=== PATIENT | male | born 1975 | race Caucasian/White ===

== ENCOUNTER 2020-01-10 08:44 | Outpatient (REF) | payer OTHER, SELFPAY ==
--- NOTE | 2020-01-10 08:46 | CT_ITS ---
EXAMINATION: CT CHEST WITH CONTRAST CLINICAL INFORMATION: Chronic cough. COMPARISON: Chest 12/07/[address] chest 06/18/2016 TECHNIQUE: Multidetector volumetric CT imaging of the chest was obtained after the administration of 50 mL of Omnipaque 350 intravenous contrast without immediate adverse reactions. Axial MIP volume rendering provided. Sagittal and coronal reformatted images were obtained. This CT examination was performed using dose optimization techniques as appropriate, variously including the following: *Automated exposure control *Adjustment of mA and/or kV according to patient size (this includes techniques or standardized protocols for targeted exams where dose is matched to indication/reason for exam; i.e. extremities or head) *Use of iterative reconstruction technique DLP: 398 mGy-cm FINDINGS: PROJECT COORDINATOR: Unremarkable. LUNGS: The lungs are well expanded and clear of acute pneumonic process. Previously seen. Again visualized is a 3 mm nodule, appears smaller on axial image 68/8 in the anterobasal segment right lower lobe. It lies adjacent to the major fissure. No additional pulmonary nodules seen. There is 1 mm punctate calcification along the right major fissure, axial image 332/7. No additional nodules seen. MEDIASTINUM: The thyroid lobes are symmetrical and normal. The central trachea and the bronchi are widely patent. There are small shotty para-aortic and pretracheal lymph nodes. The pretracheal lymph node has central fat lucency and appears benign. Heart size and the great vessels are normal caliber. No pericardial effusion seen. PLEURA: There is no pleural effusion. No pleural mass or thickening. AXILLA: There are a few shotty bilateral axillary lymph nodes. The chest wall appears unremarkable. UPPER ABDOMEN: The liver is diffusely attenuated. No focal hepatic lesion or intrahepatic ductal dilatation seen. Visualized adrenal glands, spleen and pancreas are grossly unremarkable. OSSEOUS STRUCTURES: No lytic or sclerotic process seen. CT/CT chest w con IMPRESSION: Stable punctate nodule anterobasal segment right lower lobe. No new nodules or mass seen. Fatty infiltration of liver
[2020-01-10] MEDS: iohexoL 350 MG/ML 100 ML INFUS..BTL 65 ML IV (09:49)
== END 2020-01-10 08:45 | disposition home or self-care (01) ==
LOC: HO.CT 08:44
PROVIDERS: PCP Internal Medicine Medical Oncology; Visit Provider Internal Medicine Medical Oncology
DX: R05 Cough (principal)
CPT/HCPCS: 71260; Q9967

== ENCOUNTER → 2020-01-17 13:05 | Outpatient (BNVA) | payer OTHER, SELFPAY | PROVIDERS: PCP Internal Medicine Medical Oncology; Visit Provider Internal Medicine Pulmonary Disease | DX: Z76.89 Persons encountering health services in other specified circumstances (principal) ==

== ENCOUNTER 2020-01-17 13:44 | Outpatient (REF) | payer OTHER, SELFPAY ==
--- NOTE | 2020-01-17 17:24 | PFT_ITS ---
Forced vital capacity FEV1, [id number], and MVV are normal. Post bronchodilator therapy, there is no significant change. Total lung capacity and residual volume normal. Diffusion capacity normal. CONCLUSION: Normal pulmonary function test. MD CARLOS Parrish/CAREN / [id number]
== END 2020-01-17 13:45 | disposition home or self-care (01) ==
LOC: HO.RESP 13:44
PROVIDERS: PCP Internal Medicine Medical Oncology; Visit Provider Internal Medicine Pulmonary Disease
DX: J44.9 Chronic obstructive pulmonary disease, unspecified (principal)
CPT/HCPCS: 94060; 94727; 94729

== ENCOUNTER 2020-12-05 16:41 | Emergency (ER) | payer OTHER, SELFPAY ==
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
--- NOTE | ~2020-12-05 | XR_ITS ---
EXAMINATION: X-RAY LEFT ELBOW X-RAY LEFT FOREARM CLINICAL INFORMATION: Pain. COMPARISON: Radiograph of the left elbow dated from 05/25/2014. TECHNIQUE: 3 views of the left elbow and 2 views of the left forearm were obtained. FINDINGS: Left elbow: No evidence of acute fractures or malalignment. No joint effusion. No unexpected radiopaque foreign bodies. Left forearm: No acute fractures or malalignment. No joint effusion. No unexpected radiopaque foreign bodies. XR/XR forearm LT 2V IMPRESSION: No acute fractures or malalignment within the left elbow or left forearm.
--- NOTE | ~2020-12-05 | XR_ITS ---
EXAMINATION: X-RAY LEFT ELBOW X-RAY LEFT FOREARM CLINICAL INFORMATION: Pain. COMPARISON: Radiograph of the left elbow dated from 05/25/2014. TECHNIQUE: 3 views of the left elbow and 2 views of the left forearm were obtained. FINDINGS: Left elbow: No evidence of acute fractures or malalignment. No joint effusion. No unexpected radiopaque foreign bodies. Left forearm: No acute fractures or malalignment. No joint effusion. No unexpected radiopaque foreign bodies. XR/XR elbow LT 2V IMPRESSION: No acute fractures or malalignment within the left elbow or left forearm.
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
--- NOTE | ~2020-12-05 | XR_ITS ---
EXAMINATION: XR KNEE, RIGHT CLINICAL INFORMATION: Pain COMPARISON: None TECHNIQUE: AP, lateral, tunnel, and sunrise views of the right knee. FINDINGS: Soft tissues are swollen with subcutaneous edema. No fracture or malalignment. No joint effusion. Joint spaces are well-preserved. XR/XR knee RT 4V IMPRESSION: No acute osseous abnormalities.
[2020-12-05 17:02] VITALS: BP 164/95; PULSE 129; RESP 16; TEMP 36.1; O2SAT 97; BMI 48.4
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
[2020-12-05] MEDS: iohexoL 350 MG/ML 100 ML INFUS..BTL IV (17:52)
[2020-12-05 18:37] LABS: MANUAL DIFF FLAG NO
[2020-12-05 18:40] LABS: Basophils Absolute Auto 0.1 X10*3/uL (0.0-0.2); Basophils Percent Auto 0.4 % (0-2); Eosinophils Absolute Auto 0.1 X10*3/uL (0.0-0.4); Eosinophils Percent Auto 0.6 % (0-4); Hematocrit 37.3 % (42-52); Hemoglobin 12.5 g/dl (14.0-18.0); Imm Gran Abs Auto 0.13 X10*3/uL (0.00-0.03); Lymphocytes Absolute Auto 1.9 X10*3/uL (1.2-4.9); Mean Corpuscular HGB Conc 33.5 g/dl (31.0-36.0); Mean Corpuscular Hemoglobin 28.9 pg (27.0-33.0); Mean Corpuscular Volume 86.3 fL (80-98); Mean Platelet Volume 11.2 fL (9.4-12.4); Monocytes Absolute Auto 0.9 X10*3/uL (0.1-1.2); Monocytes Percent Auto 6.5 % (2-11); Neutrophils Absolute Auto 10.6 X10*3/uL (2.0-8.3); Neutrophils Percent Auto 77.5 % (45-73); Platelet Count 254 X10*3/uL (160-400); Red Blood Count 4.32 X10*6/uL (4.60-5.80); White Blood Count 13.7 X10*3/uL (4.8-10.8)
[2020-12-05 18:55] LABS: Anion Gap 13 (12-20); Blood Urea Nitrogen 16 mg/dL (9-16); Calcium 8.9 mg/dL (8.4-10.2); Carbon Dioxide 26 mmol/L (22-29); Chloride 101 mmol/L (96-108); Creatinine Clr Calc Pharmacy 106.7; Estimated Glomerular Filt Rate > 60; Glucose Random 310 mg/dL (60-115); Potassium 4.4 mmol/L (3.3-5.1); Sodium 136 mmol/L (135-145)
[2020-12-05 20:15] VITALS: BP 161/94; PULSE 117; RESP 20; TEMP 36.6; O2SAT 94
[2020-12-05] MEDS: 0.9 % Sodium Chloride 1,000 ML 999 ML IV (20:15)
== END 2020-12-05 20:52 | disposition short-term general hospital (02) ==
PROVIDERS: Emergency Provider Emergency Medicine Emergency Medical Services
DX: S30.1XXA Contusion of abdominal wall, initial encounter (principal); V47.5XXA Car driver injured in collision with fixed or stationary object in traffic accident, initial encounter; K66.1 Hemoperitoneum; W22.11XA Striking against or struck by driver side automobile airbag, initial encounter; Y93.9 Activity, unspecified; Y92.9 Unspecified place or not applicable; Y99.9 Unspecified external cause status
CPT/HCPCS: 36415; 70450; 71260; 72125; 73070; 73090; 73564; 74177; 80048; 85025; 93005; 96361; 96374; 99285; 99291; Q9967

== ENCOUNTER → 2021-01-12 14:30 | Outpatient (BNVA) | payer OTHER, SELFPAY | PROVIDERS: PCP Internal Medicine Medical Oncology; Visit Provider Internal Medicine Pulmonary Disease ==

== ENCOUNTER 2021-02-28 09:53 | Outpatient (REF) | payer OTHER, SELFPAY ==
[2021-02-28 10:21] LABS: MANUAL DIFF FLAG NO
[2021-02-28 11:04] LABS: Basophils Percent Auto 0.4 % (0-2); Eosinophils Absolute Auto 0.1 X10*3/uL (0.0-0.4); Eosinophils Percent Auto 1.5 % (0-4); Hematocrit 42.3 % (42.0-52.0); Hemoglobin 13.2 g/dl (14.0-18.0); Imm Gran Abs Auto 0.04 X10*3/uL (0.00-0.03); Imm Gran Pct Auto 0.5 % (0.0-0.4); Lymphocytes Absolute Auto 1.8 X10*3/uL (1.2-4.9); Lymphocytes Percent Auto 24.7 % (20-40); Mean Corpuscular HGB Conc 31.2 g/dl (31.0-36.0); Mean Corpuscular Hemoglobin 27.5 pg (27.0-33.0); Mean Corpuscular Volume 88.1 fL (80.0-98.0); Mean Platelet Volume 11.4 fL (9.4-12.4); Monocytes Absolute Auto 0.7 X10*3/uL (0.1-1.2); Monocytes Percent Auto 9.3 % (2-11); Neutrophils Absolute Auto 4.7 x10*3/uL (2.0-8.3); Neutrophils Percent Auto 63.6 % (45-73); Platelet Count 254 X10*3/uL (160-400); Red Cell Distribution Width 12.9 % (11.0-16.0); White Blood Count 7.3 X10*3/uL (4.8-10.8)
[2021-02-28 11:43] LABS: Alanine Aminotransferase 50 U/L (0-40); Albumin Level 4.1 g/dL (3.5-5.0); Alkaline Phosphatase 75 U/L (39-117); Anion Gap 15 (12-20); Aspartate Amino Transferase 29 U/L (5-37); Bilirubin Total 0.4 mg/dL (0.0-1.0); Blood Urea Nitrogen 14 mg/dL (9-16); Calcium 9.3 mg/dL (8.4-10.2); Carbon Dioxide 25 mmol/L (22-29); Chloride 102 mmol/L (96-108); Cholesterol 229 mg/dL; Estimated Glomerular Filt Rate > 60; Glucose Fasting 174 mg/dL (60-99); HDL Cholesterol 30 mg/dL; LDL Cholesterol Calculated 121 mg/dl; Potassium 4.4 mmol/L (3.3-5.1); Sodium 138 mmol/L (135-145); Triglycerides 394 mg/dL
[2021-02-28 11:47] LABS: Creatinine Urine 122.13 mg/dL
[2021-02-28 12:01] LABS: Estimated Average Glucose 197 mg/dL; Hemoglobin A1c % 8.5 %
== END 2021-02-28 09:54 | disposition home or self-care (01) ==
LOC: HO.LAB 09:53
PROVIDERS: PCP Internal Medicine Medical Oncology; Visit Provider Internal Medicine Medical Oncology
DX: E78.5 Hyperlipidemia, unspecified (principal); E66.01 Morbid (severe) obesity due to excess calories; E11.9 Type 2 diabetes mellitus without complications; Z12.5 Encounter for screening for malignant neoplasm of prostate
CPT/HCPCS: 36415; 80053; 80061; 82043; 83036; 84153; 85025

== ENCOUNTER 2021-06-08 21:06 | Emergency (ER) | payer OTHER, SELFPAY ==
--- NOTE | ~2021-06-08 | XR_ITS ---
EXAMINATION: XR CHEST CLINICAL INFORMATION: Shortness of breath COMPARISON: 12/07/2018 TECHNIQUE: 2 views of the chest were obtained. FINDINGS: No acute finding. No failure or infiltrate. There is no effusion. The cardiac silhouette is comparable to previous. The hilar structures do not appear pathologically enlarged. There is no effusion. XR/XR chest 2V IMPRESSION: No acute finding.
[2021-06-08 21:14] VITALS: BP 146/87; PULSE 107; RESP 20; TEMP 36.6; O2SAT 99; BMI 45.4
[2021-06-08 21:37] LABS: Glucose, Whole Blood 158 mg/dL (60-115)
[2021-06-08] MEDS: Albuterol Sulfate (0.083%) 2.5 MG/3 ML VIAL.NEB 10 MG INHALE ×2 (21:47→22:49)
--- NOTE | 2021-06-08 21:47 | ED.ASTHMA ---
HPI - Asthma General Chief Complaint: Asthma Stated Complaint: Asthma Time Seen by Provider: 06/08/21 21:18 Source: patient Mode of arrival: ambulatory History of Present Illness HPI Narrative: 45-year-old male with history of asthma, JOSEF, diabetes who presents with worsening shortness of breath over the past couple of days and stating that his inhaler has not been working . He otherwise denies fevers, chills, sore throat, nasal congestion but states that he has had a cough and has recently completed a 2 week course of azithromycin. Patient supper claims that he is not really good about taking his medication . Related Data Home Medications Medication Instructions Recorded Confirmed pantoprazole 40 mg tablet,delayed 40 mg PO DAILY 01/17/20 01/12/21 release Previous Rx's Medication Instructions Recorded fluticasone furoate 200 1 ea PO DAILY #60 ea 04/11/21 mcg-vilanterol 25 mcg/dose inhalation powder (Breo Ellipta) benzonatate 200 mg capsule 200 mg PO TID PRN #10 cap 06/08/21 prednisone 50 mg tablet 50 mg PO DAILY 4 Days #4 tab 06/08/21 Allergies Allergy/AdvReac Type Severity Reaction Status Date / Time No Known Allergies Allergy Verified 01/12/21 14:35 Review of Systems Review of Systems: Pertinent positives and negatives as stated in HPI 10 point review of systems is otherwise negative. PMFSH Past Medical History Source: nursing notes reviewed Social History Social History Alcohol intake: unknown Patient Tobacco Use Status: Never used Tobacco Years Smoked: 22 yrs Advance Directives: No Advance Directives Information Provided: No Physical Exam Vital Signs: Vital Signs: Last Vital Signs Temp 97.9 F 06/08/21 21:14 Pulse 96 06/08/21 23:48 Resp 20 06/08/21 23:48 BP 120/57 L 06/08/21 23:48 Pulse Ox 98 06/08/21 23:48 BMI result Body Mass Index 45.4 VITAL SIGNS: Reviewed. GENERAL: Well developed, well nourished, in no acute distress. HEAD: Normocephalic/atraumatic EYES: PERRLA, EOMI EARS: Ext canals without abnormality OROPHARYNX: no oral lesions noted, posterior pharynx clear LUNGS: Good inspiratory effort, but no wheeze/ rhonchi /rales. SpO2<99> CARDIOVASCULAR: Regular rate and rhythm without noted murmurs ABDOMEN: Soft, non-tender, non-distended with bowel sounds. SKIN: Inspection of the skin reveals no rashes NEUROLOGIC: Alert and oriented x 4. Strength and sensation to light touch were grossly intact x 4. Course Course Course Narrative: 45-year-old male with history and clinical presentation consistent with asthma bronchitis and likely exacerbated by seasonal allergies. Review of all investigations otherwise negative for acute findings and on re-evaluation patient states that he is feeling much improved and understands that he will be discharged with a prescription for cough medication, prednisone, and instructions to follow-up with his real estate management specialist on Friday. MDM - Asthma Lab Data Labs: Lab Results 06/08/21 06/08/21 Range/Units 21:30 21:50 POC Glucose 158 H (60-115) mg/dL Influenza Type A (GISELLA) Negative (Negative) Influenza Type B (GISELLA) Negative (Negative) Influenza A & B Note See Note Discharge Plan Discharge Clinical Impression: Asthma with acute exacerbation, JOSEF (obstructive sleep apnea), Environmental allergies, Seasonal allergies Patient Disposition: Home, Self-Care Instructions: Asthma (ED), Allergic Rhinitis (ED) Additional Instructions: 1. Resume all home medications as prescribed. This should include any [id number] allergy medications as this will provide additional symptom relief. 2. I recommend that you increase the frequency of your rescue inhaler for the next 24-48 hours as the course steroids takes affect. 3. The steroids will increase your sugar, increased acid production, and increase your blood pressure. Please monitor your sugar levels more closely and attempt to adjust your diet accordingly during this short period. 4. You have been placed on a short course of steroids As well as cough suppressant. 5. Follow-up with your real estate management specialist on Friday for re-evaluation and further outpatient management. Prescriptions: New prednisone 50 mg tablet 50 mg PO DAILY 4 Days Qty: 4 0RF benzonatate 200 mg capsule 200 mg PO TID PRN (Reason: cough) Qty: 10 0RF No Action Breo Ellipta 200-25 mcg/dose blister with device 1 ea PO DAILY Qty: 60 0RF pantoprazole 40 mg tablet,delayed release (DR/EC) 40 mg PO DAILY 0RF Referrals: Rodrick Gandhi MD [Primary Care Provider] -
[2021-06-08 21:57] VITALS: BP 130/61; PULSE 96; RESP 15; O2SAT 99
[2021-06-08] MEDS: Benzonatate 100 MG CAPSULE 200 MG PO (22:01)
[2021-06-08] MEDS: predniSONE 10 MG TABLET 50 MG PO (22:02)
[2021-06-08 22:32] VITALS: BP 132/63; PULSE 102; RESP 13; O2SAT 94
[2021-06-08 22:42] LABS: IDNOW Serial# 16C4AD1C; Influenza A Negative (Negative); Influenza B2 Negative (Negative)
[2021-06-08 23:37] VITALS: BP 116/49; PULSE 97; RESP 13; O2SAT 92
[2021-06-08] MEDS: Albuterol Sulfate 90 MCG 8 GM INHALER 4 PUFF INHALE (23:44)
[2021-06-08 23:48] VITALS: BP 120/57; PULSE 96; RESP 20; O2SAT 98
[2021-06-09 00:09] VITALS: BP 130/57; PULSE 92; RESP 16; TEMP 36.9; O2SAT 96
== END 2021-06-09 00:15 | disposition home or self-care (01) ==
PROVIDERS: Emergency Provider Student in an Organized Health Care Education/Training Program; PCP Internal Medicine Medical Oncology
DX: J45.901 Unspecified asthma with (acute) exacerbation (principal); G47.33 Obstructive sleep apnea (adult) (pediatric); J30.2 Other seasonal allergic rhinitis
CPT/HCPCS: 71046; 82947; 87502; 99284; 99285

== ENCOUNTER → 2021-06-19 13:47 | Outpatient (BNVA) | payer OTHER, SELFPAY | PROVIDERS: PCP Internal Medicine Medical Oncology; Visit Provider Internal Medicine Pulmonary Disease | DX: J45.909 Unspecified asthma, uncomplicated (principal); G47.33 Obstructive sleep apnea (adult) (pediatric); Z91.09 Other allergy status, other than to drugs and biological substances | CPT/HCPCS: 94640 ==

== ENCOUNTER 2021-08-04 10:12 | Outpatient (REF) | payer OTHER, SELFPAY ==
[2021-08-04 10:23] LABS: MANUAL DIFF FLAG NO
[2021-08-04 11:09] LABS: Basophils Absolute Auto 0.1 X10*3/uL (0.0-0.2); Basophils Percent Auto 0.6 % (0-2); Eosinophils Absolute Auto 0.2 X10*3/uL (0.0-0.4); Eosinophils Percent Auto 1.7 % (0-4); Hemoglobin 12.7 g/dl (14.0-18.0); Imm Gran Abs Auto 0.07 X10*3/uL (0.00-0.03); Imm Gran Pct Auto 0.6 % (0.0-0.4); Lymphocytes Absolute Auto 2.4 X10*3/uL (1.2-4.9); Lymphocytes Percent Auto 21.1 % (20-40); Mean Corpuscular HGB Conc 31.8 g/dl (31.0-36.0); Mean Corpuscular Hemoglobin 27.8 pg (27.0-33.0); Mean Corpuscular Volume 87.5 fL (80.0-98.0); Mean Platelet Volume 11.4 fL (9.4-12.4); Monocytes Absolute Auto 0.9 X10*3/uL (0.1-1.2); Monocytes Percent Auto 7.4 % (2-11); Neutrophils Absolute Auto 7.9 x10*3/uL (2.0-8.3); Neutrophils Percent Auto 68.6 % (45-73); Platelet Count 284 X10*3/uL (160-400); Red Blood Count 4.57 X10*6/uL (4.60-5.80); Red Cell Distribution Width 13.7 % (11.0-16.0); White Blood Count 11.6 X10*3/uL (4.8-10.8)
[2021-08-04 11:19] LABS: Estimated Average Glucose 189 mg/dL; Hemoglobin A1c % 8.2 %
[2021-08-04 11:37] LABS: Alanine Aminotransferase 47 U/L (0-40); Albumin Level 4.1 g/dL (3.5-5.0); Alkaline Phosphatase 79 U/L (39-117); Anion Gap 12 (12-20); Aspartate Amino Transferase 28 U/L (5-37); B Type Natriuretic Peptide 52 pg/mL (<100); Bilirubin Total 0.6 mg/dL (0.0-1.0); Blood Urea Nitrogen 16 mg/dL (9-16); Calcium 8.9 mg/dL (8.4-10.2); Carbon Dioxide 28 mmol/L (22-29); Chloride 104 mmol/L (96-108); Cholesterol 234 mg/dL; Estimated Glomerular Filt Rate > 60; Glucose Fasting 122 mg/dL (60-99); HDL Cholesterol 29 mg/dL; LDL Cholesterol Calculated 152 mg/dl; Potassium 4.4 mmol/L (3.3-5.1); Sodium 140 mmol/L (135-145); Total Protein 7.5 g/dL (6.5-8.0); Triglycerides 269 mg/dL
[2021-08-04 11:58] LABS: Ferritin 63 ng/mL (20-250); Prostate Specific Antigen 0.39 ng/mL (<0.05-4.0)
== END 2021-08-04 10:13 | disposition home or self-care (01) ==
LOC: HO.XRAY 10:12
PROVIDERS: PCP Internal Medicine Medical Oncology; Visit Provider Internal Medicine Medical Oncology
DX: D10.30 Benign neoplasm of unspecified part of mouth (principal); E78.5 Hyperlipidemia, unspecified; E11.9 Type 2 diabetes mellitus without complications; G47.33 Obstructive sleep apnea (adult) (pediatric); I50.9 Heart failure, unspecified; R07.9 Chest pain, unspecified; Z12.5 Encounter for screening for malignant neoplasm of prostate
CPT/HCPCS: 36415; 80053; 80061; 82728; 83036; 83880; 84153; 85025

== ENCOUNTER → 2021-08-08 14:04 | Outpatient (REF) | payer OTHER, SELFPAY ==
--- NOTE | 2021-08-08 14:07 | CA_ITS ---
Transthoracic Echocardiogram Patient (Last, First, Middle): Murray Damico, Gender: Male Date of : 1975 Age: 46 Procedure Date: 08/08/2021 Procedure Type: Transthoracic Echocardiogram Location: OP Height: 172.72 cm Weight: 131.54 kg BSA: 2.39 m2 Heart Rate: bpm BP: 124 / 80 mmHg Word Processor: Referring MD: Rodrick Gandhi MD Symptoms: I50.9 CHF Study Quality: Fair/Contrast used ECG Rhythm: Sinus Conclusions: - The left ventricular systolic function is normal. The visually estimated ejection fraction is between 65-70%. - No obvious valvular pathology seen on this study. Findings Procedure Information Contrast agent, definity, is being given per protocol without apparent complications. Left Ventricle Normal left ventricular cavity size. The left ventricular systolic function is normal. The visually estimated ejection fraction is between 65-70%. There is no evidence of regional wall motion abnormalities. Diastolic function is normal for age. Endocardial definition is suboptimal for wall thickness assessment; possible moderate septal hypertrophy. Right Ventricle Mildly increased right ventricular cavity size. There is normal right ventricular systolic function. Atria Both atria are normal in size. Aortic Valve There is a normal trileaflet aortic valve. There is no aortic valve stenosis. There is no aortic valve regurgitation. Mitral Valve The mitral valve appears normal. There is no mitral valve regurgitation. There is no mitral valve stenosis. Pulmonic Valve The pulmonic valve is likely normal. Tricuspid Valve There is trace tricuspid valve regurgitation. There is no evidence of pulmonary hypertension. Great Vessels The aortic annulus, sinuses of valsalva, and asc aorta are normal in size. Venous The inferior vena cava was not well visualized. The inferior vena cava is normal in size. Pericardium/Pleural There is no evidence of pericardial effusion. Prior Study Comparison No significant change compared to prior study dated: 11/30/2014. Recommendations, Care & Conclusions No obvious valvular pathology seen on this study. Measurements 2D Linear Measurements IVSd: 1.48 0.6-0.9/0.6-1.0 cm LVIDd: 5.00 3.9-5.3/4.2-5.9 cm LVIDd Index: 2.09 2.4-3.2/2.2-3.1 cm/m2 LVIDs: 2.94 2.0-3.6 cm LVPWd: 1.44 0.7-1.1 cm Ao Root: 3.60 2.1-3.5 cm LA Diam: 4.00 2.7-3.8/3.0-4.0 cm LAIDs Index: 1.67 1.5-2.3 cm/m2 LV Mass: 386.66 67-162/88-224 g LV Mass Index: 161.78 43-95/49-115 g/m2 LVOT Diam: 2.30 3.0+(-)1.3 cm 2D Systolic Function EF 4C: 71.60 >55% EF 2C: 54.40 >55% EF BiP: 64.70 >55% Mitral Valve MV Pk E: 1.13 MV PK A: 0.90 MV Decel Time: 223.00 E/A: 1.30 E'Lateral: 14.60 E'Medial: 7.83 E/E' Med: 14.40 E/E' Lat: 7.70 PHT: 65.00 MVA PHT: 3.38 Decel Wheeler: 5.06 Aortic Valve AoV Pk Flaco: 1.79 AoV Mn Flaco: 1.26 AoV VTI: 0.31 AoV Pk Grad: 13.00 Aov Mn Grad: 7.00 YUNIOR Cont.VTI: 3.31 LVOT LVOT Pk Flaco: 1.44 LVOT Mn Flaco: 0.98 LVOT VTI: 0.25 LVOT Pk Grad: 8.00 LVOT Mn Grad: 5.00 LVOT Diam: 2.30 LVOT Area: 4.15 Diastolic Function MV Pk E: 1.13 MV Pk A: 0.90 E/A: 1.30 E'Medial: 7.83 E/E' Med: 14.40 E' Laterial: 14.60 E/E' Lat: 7.70 Right Ventricle TAPSE (mm): 30.00 TVS' Flaco: 12.00 Tricuspid Valve TR Pk Flaco: 1.96 TR Pk Grad: 15.00 RA Press: 3.00 RVSP: 18.00 Great Vessels Aorta Ao Root-2D: 3.60 2.0-3.7 cm Pulmonary Valve PV Pk Flaco: 1.26 Peak PV Grad: 6.00 Updated in Other Vendor System with Status of Final Javier Singleton MD electronically signed on 08/09/2021 12:30:36 PM with status of Final
== END ==
LOC: HO.CARD 14:04
PROVIDERS: PCP Internal Medicine Medical Oncology; Visit Provider Internal Medicine Medical Oncology
DX: I50.9 Heart failure, unspecified (principal)
CPT/HCPCS: 93306; Q9957

== ENCOUNTER 2021-12-11 09:01 | Outpatient (REF) | payer OTHER, SELFPAY ==
--- NOTE | ~2021-12-11 | US_ITS ---
EXAMINATION: US VENOUS ULTRASOUND WITH DOPPLER LOWER EXTREMITY, RIGHT CLINICAL INFORMATION: Right leg swelling. COMPARISON: None TECHNIQUE: Ultrasound of the deep veins is performed from the hip to the calf with compression sonography and color and pulse Doppler assessment. Spectral analysis with color-flow imaging is performed. FINDINGS: There is normal venous compression and respiratory variation and augmented flow. The visualized common femoral vein, superficial femoral vein, profunda femoral vein, popliteal vein, and the trifurcation region shows no evidence of deep venous thrombosis. No right popliteal cyst. Mild subcutaneous edema in the right calf. Enlarged reniform inguinal lymph nodes are seen bilaterally measuring up to 3.3 cm in long axis on the right and 4.1 cm on the left US/US venous duplex LE RT IMPRESSION: 1. No evidence for deep venous thrombosis in the visualized veins of the right lower extremity. 2. Mild subcutaneous edema in the right calf. 3. Enlarged inguinal lymph nodes bilaterally nonspecific. The overall appearance is benign suggesting these are reactive. Correlate with patient history and physical exam.
== END 2021-12-11 09:02 | disposition home or self-care (01) ==
LOC: HO.US 09:01
PROVIDERS: PCP Internal Medicine Medical Oncology; Visit Provider Internal Medicine Medical Oncology
DX: I82.401 Acute embolism and thrombosis of unspecified deep veins of right lower extremity (principal)
CPT/HCPCS: 93971

== ENCOUNTER 2022-09-02 08:51 | Outpatient (REF) | payer OTHER, SELFPAY | END 2022-09-02 08:52 | disposition home or self-care (01) | LOC: HO.HOSX 08:51 | PROVIDERS: Visit Provider Orthopaedic Surgery | DX: Z13.89 Encounter for screening for other disorder (principal) ==

== ENCOUNTER 2022-12-28 08:14 | Outpatient (REF) | payer OTHER, SELFPAY ==
[2022-12-28 08:26] LABS: MANUAL DIFF FLAG NO
[2022-12-28 09:06] LABS: Basophils Absolute Auto 0.1 X10*3/uL (0.0-0.2); Basophils Percent Auto 0.6 % (0-2); Eosinophils Absolute Auto 0.2 X10*3/uL (0.0-0.4); Eosinophils Percent Auto 1.7 % (0-4); Imm Gran Abs Auto 0.06 X10*3/uL (0.00-0.03); Imm Gran Pct Auto 0.6 % (0.0-0.4); Lymphocytes Absolute Auto 2.6 X10*3/uL (1.2-4.9); Lymphocytes Percent Auto 27.5 % (20-40); Mean Corpuscular HGB Conc 31.6 g/dl (31.0-36.0); Mean Corpuscular Volume 85.6 fL (80.0-98.0); Mean Platelet Volume 11.4 fL (9.4-12.4); Monocytes Absolute Auto 0.8 X10*3/uL (0.1-1.2); Monocytes Percent Auto 8.6 % (2-11); Neutrophils Absolute Auto 5.6 x10*3/uL (2.0-8.3); Platelet Count 259 X10*3/uL (160-400); Red Blood Count 4.44 X10*6/uL (4.60-5.80); Red Cell Distribution Width 13.5 % (11.0-16.0); White Blood Count 9.3 X10*3/uL (4.8-10.8)
[2022-12-28 09:20] LABS: Estimated Average Glucose 240 mg/dL
[2022-12-28 09:41] LABS: Alanine Aminotransferase 43 U/L (0-40); Albumin Level 3.9 g/dL (3.5-5.0); Alkaline Phosphatase 70 U/L (39-117); Anion Gap 12 (12-20); Aspartate Amino Transferase 35 U/L (5-37); Bilirubin Total 0.4 mg/dL (0.0-1.0); Blood Urea Nitrogen 13 mg/dL (9-16); Calcium 8.9 mg/dL (8.4-10.2); Carbon Dioxide 29 mmol/L (22-29); Chloride 101 mmol/L (96-108); Cholesterol 209 mg/dL (<200); Estimated Glomerular Filt Rate > 60; Glucose Fasting 160 mg/dL (60-99); HDL Cholesterol 27 mg/dL (>40); LDL Cholesterol Calculated 122 mg/dL (<100); Sodium 138 mmol/L (135-145); Total Protein 8.1 g/dL (6.5-8.0); Triglycerides 301 mg/dL (<150)
== END 2022-12-28 08:15 | disposition home or self-care (01) ==
LOC: HO.LAB 08:14
PROVIDERS: PCP Internal Medicine Medical Oncology; Visit Provider Internal Medicine Medical Oncology
DX: E78.5 Hyperlipidemia, unspecified (principal); E66.01 Morbid (severe) obesity due to excess calories; E11.9 Type 2 diabetes mellitus without complications
CPT/HCPCS: 36415; 80053; 80061; 83036; 85025

== ENCOUNTER 2023-09-13 08:03 | Outpatient (REF) | payer OTHER, SELFPAY ==
[2023-09-13 08:56] LABS: MANUAL DIFF FLAG NO
[2023-09-13 09:07] LABS: Basophils Percent Auto 0.5 % (0-2); Eosinophils Absolute Auto 0.1 X10*3/uL (0.0-0.4); Eosinophils Percent Auto 1.7 % (0-4); Hematocrit 39.2 % (42.0-52.0); Hemoglobin 12.7 g/dl (14.0-18.0); Imm Gran Abs Auto 0.04 X10*3/uL (0.00-0.03); Imm Gran Pct Auto 0.5 % (0.0-0.4); Lymphocytes Absolute Auto 2.1 X10*3/uL (1.2-4.9); Lymphocytes Percent Auto 27.5 % (20-40); Mean Corpuscular HGB Conc 32.4 g/dl (31.0-36.0); Mean Corpuscular Hemoglobin 27.9 pg (27.0-33.0); Mean Corpuscular Volume 86.2 fL (80.0-98.0); Mean Platelet Volume 10.5 fL (9.4-12.4); Monocytes Absolute Auto 0.8 X10*3/uL (0.1-1.2); Monocytes Percent Auto 10.8 % (2-11); Neutrophils Absolute Auto 4.6 x10*3/uL (2.0-8.3); Platelet Count 243 X10*3/uL (160-400); Red Blood Count 4.55 X10*6/uL (4.60-5.80); White Blood Count 7.8 X10*3/uL (4.8-10.8)
[2023-09-13 09:15] LABS: Estimated Average Glucose 189 mg/dL; Hemoglobin A1c % 8.2 % (<6.0)
[2023-09-13 10:06] LABS: Alanine Aminotransferase 39 U/L (0-40); Albumin Level 4.1 g/dL (3.5-5.0); Alkaline Phosphatase 66 U/L (39-117); Anion Gap 14 (12-20); Aspartate Amino Transferase 23 U/L (5-37); Bilirubin Total 0.5 mg/dL (0.0-1.0); Blood Urea Nitrogen 10 mg/dL (9-16); Calcium 9.2 mg/dL (8.4-10.2); Carbon Dioxide 28 mmol/L (22-29); Chloride 103 mmol/L (96-108); Cholesterol 197 mg/dL (<200); Estimated Glomerular Filt Rate > 60; Glucose Fasting 161 mg/dL (60-99); HDL Cholesterol 31 mg/dL (>40); LDL Cholesterol Calculated 129 mg/dL (<100); Potassium 4.5 mmol/L (3.3-5.1); Sodium 140 mmol/L (135-145); Total Protein 8.2 g/dL (6.5-8.0); Triglycerides 185 mg/dL (<150)
== END 2023-09-13 08:04 | disposition home or self-care (01) ==
LOC: HO.LAB 08:03
PROVIDERS: PCP Internal Medicine Medical Oncology; Visit Provider Internal Medicine Medical Oncology
DX: E78.5 Hyperlipidemia, unspecified (principal); E11.9 Type 2 diabetes mellitus without complications; E66.01 Morbid (severe) obesity due to excess calories
CPT/HCPCS: 36415; 80053; 80061; 83036; 85025

== ENCOUNTER 2024-06-23 13:16 | Outpatient (REF) | payer OTHER, SELFPAY ==
[2024-06-23 13:27] LABS: Appearance Urine Clear; Color Urine Yellow; Glucose Urine UA >=1000 mg/dL (Negative); Leukocyte Esterase Urine Negative (Negative); Nitrite Urine Negative (Negative); PH 5.5 (5.0-9.0); Specific Gravity - Urine >= 1.030 (1.005-1.025); UMIC TRIGGER UA YES; Urine Blood Negative (Negative); Urine Ketones Trace mg/dL (Negative); Urine Protein 100 (2+) mg/dL (Neg-Trace)
[2024-06-23 13:29] LABS: Bacteria Urine None Seen (None Seen); Hyaline Casts Urine 0-2 /LPF (0-2); RBC Urine 0-2 /HPF (0-2); Squamous Epithelial Cell Urine 0-2 /HPF (0-2); WBC Urine 0-5 /HPF (0-5)
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
--- OUTSIDE RECORDS SUMMARY | 2024-06-23 13:29 | XMS_ITS | Patient Health Record ---
Author Organization Reymundo Gandhi III, MD Address [address] [place] [address] Care Team Providers Care Php Developer Name Role Phone Reymundo Gandhi Primary Care Provider [phone] Allergies Allergen (clinical drug ingredient) Drug/Non Drug Allergy documented on EMR Reaction Allergy Type Onset Date Status No Known Drug Allergy Unknown Drug Allergy Active Results Component Value Reference Range Notes RBS/Hemocue glucose Reviewed date:06/23/2024 08:56:59 AM Interpretation: [...] 0.2 - 1.3 BLD Negative Negative - Complete Blood Count Auto Di ff Reviewed date:09/14/2023 05:53:39 AM Interpretation: Performing Lab:[facility], [address] [place] [id number] Notes/Report: White Blood Count 7.8 4.8-10.8 X10*3/uL Red Blood Count 4.55 4.60-5.80 X10*6/uL Hemoglobin 12.7 14.0-18.0 g/dl Hematocrit 39.2 42.0-52.0 % Mean Corpuscular Volume 86.2 80.0-98.0 fL Mean Corpuscular Hemoglobin 27.9 27.0-33.0 pg Mean Corpuscular HGB Conc 32.4 31.0-36.0 g/dl Red Cell Distribution Width 13.0 11.0-16.0 % Platelet Count 243 160-400 X10*3/uL Mean Platelet Volume 10.5 9.4-12.4 fL Neutrophils Percent Auto 59.0 45-73 % Imm Gran Pct Auto 0.5 0.0-0.4 % Lymphocytes Percent Auto 27.5 20-40 % Monocytes Percent Auto 10.8 2-11 % Eosinophils Percent Auto 1.7 0-4 % Basophils Percent Auto 0.5 0-2 % NRBC Pct Auto 0.0 0.0-0.2 /100WBC Neutrophils Absolute Auto 4.6 2.0-8.3 x10*3/u L Imm Gran Abs Auto 0.04 0.00-0.03 X10*3/uL Lymphocytes Absolute Auto 2.1 1.2-4.9 X10*3/u L Monocytes Absolute Auto 0.8 0.1-1.2 X10*3/uL Eosinophils Absolute Auto 0.1 0.0-0.4 X10*3/u L Basophils Absolute Auto 0.0 0.0-0.2 X10*3/uL NRBC Abs Auto 0.000 0.0-0.012 X10*3/uL Comprehensive [place]. Panel Fa st Reviewed date:09/14/2023 05:53:39 AM Interpretation: Performing Lab:[facility], [address] [place] [address], [place] [address] Notes/Report: Sodium 140 135-145 mmol/L Potassium 4.5 3.3-5.1 mmol/L Chloride 103 96-108 mmol/L Carbon Dioxide 28 22-29 mmol/L Anion Gap 14 12-20 Blood Urea Nitrogen 10 9-16 mg/dL Creatinine 0.82 0.5-1.4 mg/dL Estimated Glomerular Filt Rate > 60 NOTE: For -Malagasy individuals, multiply the result by 1.210. Chronic Kidney Disease: Estimated GFR < 60 mL/min/1.73m2 Severe Kidney Disease: Estimated GFR < 15 mL/min/1.73m2 Glucose Fasting 161 60-99 mg/dL A fasting glucose of 126 mg/dl or greater on more than one occasion is considered diagnostic of diabetes. Calcium 9.2 8.4-10.2 mg/dL Bilirubin Total 0.5 0.0-1.0 mg/dL Aspartate Amino Transferase 23 5-37 U/L Alanine Aminotransferase 39 0-40 U/L Total Protein 8.2 6.5-8.0 g/dL Albumin Level 4.1 3.5-5.0 g/dL Alkaline Phosphatase 66 39-117 U/L Lipid Panel Reviewed date:09/14/2023 05:53:39 AM Interpretation: Performing Lab:[address] [id number] Notes/Report: Triglycerides 185 <150 mg/dL Desirable Triglyceride: less than 150 mg/dL Borderline High Triglyceride 150-199 mg/dL High Triglyceride: 200-499 mg/dL Very High Triglyceride: greater than or equal to 5OO mg/dL Cholesterol 197 <200 mg/dL Desirable Cholesterol: less than 200 mg/dL Borderline High Cholesterol: 200-239 mg/dL High Cholesterol: greater than 239 mg/dL LDL Cholesterol Calculated 129 <100 mg/dL Desirable LDL: less than 100 mg/dL Near Optimal/Above Optimal LDL: 110-129 mg/dL Borderline High LDL: 130-159 mg/dL High LDL: 160-189 mg/dL Very High LDL: greater than or equal to 190 mg/dL HDL Cholesterol 31 >40 mg/dL Desirable HDL: greater than 40 mg/dL Note: This HDL assay may give artificially low results in patients with liver disease. Hemoglobin A1c Reviewed date:09/14/2023 05:53:39 AM Interpretation: Performing Lab:[address] [id number] Notes/Report: Hemoglobin A1c % 8.2 <6.0 % Hemoglobin A1C Reference Range Adults: 4.8 - 6.0 % Non diabetic: < 6.0 % Goal: < 7.0 % Additional Action Suggested: > 8.0 % Note: Hemoglobin A1c results are invalid for patients with abnormal amounts of HbF. Blood transfusions may impact the HbA1c concentration in the patient sample. Estimated Average Glucose 189 eAG = Estimated average glucose which is %A1C expressed as average glucose, using the formula of the [id number] Average Glucose study (ADAG), Diabetes Care, Vol.31,#8, Sep. 2007 Reason For Referral Reason Consult and Treat Screening for Colon Cancer Diagnosis 1 Screen for colon can cer (Z12.11) Referral Organization Reymundo Gandhi III, MD Referring Provider First Name Reymundo Referring Provider Last Name Oksana Referring Provider Speciality Internal M edicine Referred Organization [facility] Address [address] [place] [id number], Referred Provider Specialty Gastroentero logy General Notes Franchesca Brown 03/08/2024 11:41:35 AM > Referral faxed with progress note, patient demos and cover sheet to [facility] Referral Priority Routine Medications Medication SIG (Take, Route, Frequency, Duration) Notes Start Date End Date Status Trelegy Ellipta 200-62.5-25 MCG/ACT Inhalation Active Ipratropium-Albutero l 0.5-2.5 (3) MG/3ML Inhalation Active Albuterol Sulfate HFA 108 (90 Base) MCG/ACT 1 puff as needed Inhalation every 4 hrs 09/09/2022 Active Alcohol Prep Pad 70 % as directed - to check blood sugars daily 12/20/2022 Active Furosemide 40 MG TAKE 1 TABLET BY MOUTH EVERY DAY Active metFORMIN HCl 1000 MG 1 tablet with a meal Orally twicer a day 08/01/2023 Active Mounjaro 5 MG/0.5ML as directed Subcutaneous weekly for 28 days 06/23/2024 05/25/2025 Active Dexcom G7 Stonecutter Assistant - as directed - use t o monitor blood sugars daily 09/15/2023 Active Dexcom G7 Sensor - as directed - use to monitor blood sugars daily 09/15/2023 Active Pantoprazole Sodium 40 MG TAKE 1 TABLET BY MOUTH EVERY DAY Active Lantus SoloStar 100 UNIT/ML 10 uNITS Subcutaneous daily 09/15/2023 Active Ondansetron HCl 4 MG 1 tablet Orally every 6 hours 05/16/2023 Active Clobetasol Propionate 0.05 % 1 application Externally Once a day 09/15/2023 Active Rybelsus 14 MG Oral Activ e Mounjaro 2.5 MG/0.5ML use 2.5mg once a week Subcutaneous once a week DX: Diabetes E11.9 05/18/2024 Active Immunizations Vaccine Route Administration Date Status Comme nts Decline: Influenza Unknown 11/24/2013 Refused Social History Tobacco Use: Social History Observation [...] User Heavy cigarett e smoker (20-39 cigs/day) Alcohol Screen Question Answer Notes Did you have a drink containing alcohol in the p ast year? No Points 0 Interpretation Negative Problems Problem Type SNOMED Code ICD Code Onset Dates Problem Status W/U Status Risk Notes Problem Former smoker (8975959) Former smoker (Z87.891) Active confirmed He says he has stopped smoking. We discussed a plan to prevent relapse in times of stress and illness. Problem 76665361 Hyperlipidemia (E78.5) Active confirmed His lipids have been stable. No change in his regimen was made. Problem DM - Diabetes mellitus (75806999) DM (diabetes mellitus) (E11.9) Active confirmed He was continued on the Ozempic at 2 mg. He will return once a month. I have asked him to do to fasting glucose levels per month and record them in a notebook. We have discussed limiting his portions. His answer to that was he loves to eat.Suresh mills blood work has been ordered prior to his next visit which would include a microalbumin, hemoglobin A1c and fasting glucose. Problem 924008866 GERD (gastroesophagea l reflux disease) (K21.9) Active confirmed His reflux symptoms are occasional now. He has omeprazole and liquid antacid to use. Problem 77807206 Dysuria (R30.0) Active confirmed Problem 018552262 Peripheral edema (R60.9) Active confirmed He has mild to moderate peripheral edema below his knees and may be developing lymphedema. There are early changes of venous stasis. He will wear support hose and elevate his legs. He will be seen in the office tomorrow morning Problem Benign prostatic hyperplasia (662646068) BPH (benign prostatic hyperplasia) (N40.0) Active confirmed He says he gets up once a night to urinate at the age of 46. We discussed lifestyle modification to reduce nocturia. Problem 80929606 Essential hypertension (I10) Active confirmed His blood pressure has been elevated recently. He has gained weight. He is not pursuing aa low-sodium diet. When he returns next week to flush his earrs. His blood pressure will be obtained and he will be treated if necessary. Problem 53596041 Chronic fatigue (R53.82) Active confirmed This is likely due to his uncontrolled diabetes, morbid obesity, long hours at work and the sleep apnea. He was educated about taking his medications. Problem 87580602 Sleep apnea in adult (G47.33) Active confirmed He declines t o use his sleep apnea saying it does not work. I have encouraged him to try again. Problem 57560134 Cervical radiculopathy (M54.12) Active confirmed His neck pain is still present with motions of the neck, but it is substantially diminished. Current therapy was continued without change. Problem Pulmonary nodule (620768508) Pulmonary nodule (R91.1) Active confirmed A CT scan of the chest with contrast is pending prior to his pulmonary consultation. The chest x-ray was unremarkable. 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 Problem 565376246933453 Carpal tunnel syndrome of right wrist (G56.01) Active confirmed He will have the opinion of a hand surgeon. I will attempt to order an EMG from neurology to document of entrapment. Problem 167664382 Urinary frequency (R35.0) Active confirmed Problem 537152940782903 Primary osteoarthritis of right knee (M17.11) Active confirmed He has had a knee replacement at [facility], but continues to have pain. He is now working on a second opinion with the lingual and orthopedic surgeons. I encouraged compliance with the recommendation s. Problem 618240375 Asthmatic bronchitis (J45.909) Active confirmed His lungs were clear today and there was no wheezing. No change in his medications as necessary. I urged him to resume his inhalers. Problem 347588574 Morbid obesity (E66.01) Active confirmed His body mass index is 46.We discussed his diet and nutrition. He will continue his weight loss program. He has gained weight. His Ozempic was discontinued. We are working on obtaining Apollo. He will be seen every 4 weeks and weight loss will be reinforced. I have offered to refer him to the weight loss program at [facility] to discuss bariatric surgery but he emphatically declined that offer. Discussed Weight Watchers and other programs. He will be brought back to the office to be weighed. Problem 219455633 Type 2 diabetes mellitus without complication, without long-term current use of insulin (E11.9) Active confirmed He will continue on the current dose of ozempic and resume metformin 1000 mg twice daily. He was given an appointment to come to the office for examination. Comprehensive blood work was ordered. Problem 187528450 Non-compliant behavior (R46.89) Active confirmed He was educated about the cause of his fatigue. We have discussed the consequences of not controlling his various illnesses. Close follow-up was arranged. Problem Chronic sinusitis (J32.9) Active confirmed This problem is currently stable on current medication. Vital Signs Heart Rate 90 /min 06/23/2024 Temperature 99.3 degrees Fahrenheit 03/05/2024 Oximetry 98 % 06/23/2024 Blood pressure diastolic 82 mm Hg 03/05/2024 Height 68 in 06/23/2024 Blood pressure systolic 141 mm Hg 03/05/2024 Weight 307 lbs 06/23/2024 BMI 46.67 kg/m2 06/23/2024 Encounters Encounter Location Date Provider Diagnosis Reymundo Ganhdi III, MD [address] [place] [address] [place] [address] 06/23/2024 Reymundo Gandhi DM (diabetes mellitu s) E11.9 ; Hematuria R31.9 ; Hyperlipidemia E78.5 ; Morbid obesity E66.01 ; Urinary frequency R35.0 and Dysuria R30.0 Reymundo Gandhi III, MD [address] [place] [address] [place] [address] 08/01/2023 Reymundo Gandhi Cervical radiculopat hy M54.12 ; Hyperlipidemia E78.5 ; Type 2 diabetes mellitus without complication, without long-term current use of insulin E11.9 ; Morbid obesity E66.01 and Former smoker Z87.891 Reymundo Gandhi III, MD [address] [place] [address] [place] [address] 09/15/2023 Reymundo Gandhi Cervical radiculopat hy M54.12 ; DM (diabetes mellitus) E11.9 ; Sleep apnea in adult G47.33 ; Hyperlipidemia E78.5 ; GERD (gastroesophageal reflux disease) K21.9 ; BPH (benign prostatic hyperplasia) N40.0 ; Peripheral edema R60.9 and Former smoker Z87.891 Reymundo Gandhi III, MD [address] [place] [address] [place] [address] 03/02/2024 Reymundo Gandhi Cervical radiculopat hy M54.12 ; DM (diabetes mellitus) E11.9 ; Sleep apnea in adult G47.33 ; Former smoker Z87.891 ; Morbid obesity E66.01 and Viral syndrome B34.9 Reymundo Gandhi III, MD [address] [place] [address] [place] [address] 03/05/2024 Reymundo Gandhi Cervical radiculopat hy M54.12 ; DM (diabetes mellitus) E11.9 ; Sleep apnea in adult G47.33 ; GERD (gastroesophageal reflux disease) K21.9 ; Former smoker Z87.891 and Morbid obesity E66.01 Reymundo Gandhi III, MD [address] [place] [address] [place] [address] 05/18/2024 Reymundo Gandhi Cervical radiculopat hy M54.12 ; Morbid obesity E66.01 ; DM (diabetes mellitus) E11.9 ; Former smoker Z87.891 and Sleep apnea in adult G47.33 Reymundo Gandhi III, MD [address] [place] [address] [place] [address] 05/26/2024 Reymnudo Gandhi Cervical radiculopat hy M54.12 ; Morbid obesity E66.01 ; DM (diabetes mellitus) E11.9 ; Former smoker Z87.891 ; BPH (benign prostatic hyperplasia) N40.0 ; Essential hypertension I10 ; Primary osteoarthritis of right knee M17.11 ; Sleep apnea in adult G47.33 and Hyperlipidemia E78.5 Reymundo Gandhi III, MD [address] [place] [address] [place] [address] 06/10/2024 Reymundo Gandhi Cervical radiculopat hy M54.12 ; DM (diabetes mellitus) E11.9 ; Colon cancer screening Z12.11 ; Sleep apnea in adult G47.33 ; Hyperlipidemia E78.5 ; GERD (gastroesophageal reflux disease) K21.9 ; Former smoker Z87.891 ; Primary osteoarthritis of right knee M17.11 and Essential hypertension I10 Reymundo Gandhi III, MD [address] [place] [address] [address] [place] [address] 09/18/2023 Reymundo Gandhi III, MD [address] [place] [address] [address] [place] [address] 10/22/2023 Reymundo Gandhi III, MD [address] [place] [address] [address] [place] [address] 02/23/2024 Reymundo Gandhi Assessments Encounter Date Diagnosis (ICD Code) Assessment Notes T reatment Notes Treatment Clinical Notes 06/23/2024 DM (diabetes mellitus) (ICD-10 - E11.9) 08/01/2023 Hyperlipidemia (ICD-10 - E78.5) His lipids have been stable. No change in his regimen was made. 08/01/2023 Cervical radiculopathy (ICD-10 - M54.12) In the past he had pain radiating into his shoulders. The burning discomfort in the back of his neck is likely irritation of the nerve root. He will be treated with feet and rest and ibuprofen. He is going to return next week for otic irrigation. If his blood pressure is still elevated will be treatted. If the burning is still present he will be given a trial of gabapentin. 09/15/2023 DM (diabetes mellitus) (ICD-10 - E11.9) His A1c is 8.2 with a fasting glucose of 160. He is unable to continue the metformin because of gastrointestinal side effects primarily diarrhea and nausea. I have begun him on Lantus insulin 10 units of will titrate the dose until his A1c as close to 7.0. Control of his diabetes is made complicated by his morbid obesity. He has lost 15 pounds with the help of Ozempic , so I have continued this medication. I am arranging for him to have adexcon 7 monitor to help him adjust his insulin use. 09/15/2023 Cervical radiculopathy (ICD-10 - M54.12) His neck pain is still present with motions of the neck, but it is substantially diminished. Current therapy was continued without change. 03/02/2024 DM (diabetes mellitus) (ICD-10 - E11.9) His A1c is 8.2 with a fasting glucose of 160. He is unable to continue the metformin because of gastrointestinal side effects primarily diarrhea and nausea. I have begun him on Lantus insulin 10 units of will titrate the dose until his A1c as close to 7.0. Control of his diabetes is made complicated by his morbid obesity. He has lost 15 pounds with the help of Ozempic , so I have continued this medication. I am arranging for him to have Freebeeon 7 monitor to help him adjust his insulin use. 03/02/2024 Cervical radiculopathy (ICD-10 - M54.12) His neck pain is still present with motions of the neck, but it is substantially diminished. Current therapy was continued without change. 03/05/2024 DM (diabetes mellitus) (ICD-10 - E11.9) He was continued on the Ozempic at 2 mg. He will return once a month. I have asked him to do to fasting glucose levels per month and record them in a notebook. We have discussed limiting his portions. His answer to that was he loves to eat. 03/05/2024 Cervical radiculopathy (ICD-10 - M54.12) His neck pain is still present with motions of the neck, but it is substantially diminished. Current therapy was continued without change. 05/18/2024 Cervical radiculopathy (ICD-10 - M54.12) His neck pain is still present with motions of the neck, but it is substantially diminished. Current therapy was continued without change. 05/18/2024 Morbid obesity (ICD-10 - E66.01) We discussed his diet and nutrition. He will continue his weight loss program. He has gained weight. His Ozempic was continued. He will be seen every 4 weeks and weight loss will be reinforced. I have offered to refer him to the weight loss program at [facility] to discuss bariatric surgery but he emphatically declined that offer. Discussed Weight Watchers and other programs. He will be brought back to the office to be weighed. If he has gained weight we will consider another medical option. 05/26/2024 Cervical radiculopathy (ICD-10 - M54.12) His neck pain is still present with motions of the neck, but it is substantially diminished. Current therapy was continued without change. 05/26/2024 Morbid obesity (ICD-10 - E66.01) His body mass index is 46.We discussed his diet and nutrition. He will continue his weight loss program. He has gained weight. His Ozempic was discontinued. We are working on obtaining Apollo. He will be seen every 4 weeks and weight loss will be reinforced. I have offered to refer him to the weight loss program at [facility] to discuss bariatric surgery but he emphatically declined that offer. Discussed Weight Watchers and other programs. He will be brought back to the office to be weighed. 06/10/2024 DM (diabetes mellitus) (ICD-10 - E11.9) He was continued on the Ozempic at 2 mg. He will return once a month. I have asked him to do to fasting glucose levels per month and record them in a notebook. We have discussed limiting his portions. His answer to that was he loves to eat.Comprehensive blood work has been ordered prior to his next visit which would include a microalbumin, hemoglobin A1c and fasting glucose. 06/10/2024 Cervical radiculopathy (ICD-10 - M54.12) His neck pain is still present with motions of the neck, but it is substantially diminished. Current therapy was continued without change. 06/23/2024 Hyperlipidemia (ICD-10 - E78.5) 06/23/2024 Hematuria (ICD-10 - R31.9) 08/01/2023 Type 2 diabetes mellitus without complication, without long-term current use of insulin (ICD-10 - E11.9) He will continue on the current dose of ozempic and resume metformin 1000 mg twice daily. He was given an appointment to come to the office for examination. Comprehensive blood work was ordered. 09/15/2023 Sleep apnea in adult (ICD-10 - G47.33) He declines to use his sleep apnea saying it does not work. I have encouraged him to try again. 03/02/2024 Sleep apnea in adult (ICD-10 - G47.33) He declines to use his sleep apnea saying it does not work. I have encouraged him to try again. 03/05/2024 Sleep apnea in adult (ICD-10 - G47.33) He declines to use his sleep apnea saying it does not work. I have encouraged him to try again. 05/18/2024 DM (diabetes mellitus) (ICD-10 - E11.9) He was continued on the Ozempic at 2 mg. He will return once a month. I have asked him to do to fasting glucose levels per month and record them in a notebook. We have discussed limiting his portions. His answer to that was he loves to eat. 05/26/2024 DM (diabetes mellitus) (ICD-10 - E11.9) He was continued on the Ozempic at 2 mg. He will return once a month. I have asked him to do to fasting glucose levels per month and record them in a notebook. We have discussed limiting his portions. His answer to that was he loves to eat. 06/10/2024 Colon cancer screening (ICD-10 - Z12.11) He is due for colonoscopy. We have discussed today and will schedule it. 06/23/2024 Morbid obesity (ICD-10 - E66.01) 08/01/2023 Morbid obesity (ICD-10 - E66.01) We discussed his diet and nutrition. He will continue his weight loss. 09/15/2023 Hyperlipidemia (ICD-10 - E78.5) His lipids have been stable. No change in his regimen was made. 03/02/2024 Former smoker (ICD-10 - Z87.891) He says he has stopped smoking. We discussed a plan to prevent relapse in times of stress and illness. 03/05/2024 GERD (gastroesophageal reflux disease) (ICD-10 - K21.9) His reflux symptoms are occasional now. He has omeprazole and liquid antacid to use. 05/18/2024 Former smoker (ICD-10 - Z87.891) He says he has stopped smoking. We discussed a plan to prevent relapse in times of stress and illness. 05/26/2024 Former smoker (ICD-10 - Z87.891) He says he has stopped smoking. We discussed a plan to prevent relapse in times of stress and illness. 06/10/2024 Sleep apnea in adult (ICD-10 - G47.33) He declines to use his sleep apnea saying it does not work. I have encouraged him to try again. 06/23/2024 Urinary frequency (ICD-10 - R35.0) 08/01/2023 Former smoker (ICD-10 - Z87.891) He says he has stopped smoking. We discussed a plan to prevent relapse in times of stress and illness. 09/15/2023 GERD (gastroesophageal reflux disease) (ICD-10 - K21.9) His reflux symptoms are occasional now. He has omeprazole and liquid antacid to use. 03/02/2024 Morbid obesity (ICD-10 - E66.01) We discussed his diet and nutrition. He will continue his weight loss. 03/05/2024 Former smoker (ICD-10 - Z87.891) He says he has stopped smoking. We discussed a plan to prevent relapse in times of stress and illness. 05/18/2024 Sleep apnea in adult (ICD-10 - G47.33) He declines to use his sleep apnea saying it does not work. I have encouraged him to try again. 05/26/2024 BPH (benign prostatic hyperplasia) (ICD-10 - N40.0) He says he gets up once a night to urinate at the age of 46. We discussed lifestyle modification to reduce nocturia. 06/10/2024 Hyperlipidemia (ICD-10 - E78.5) His lipids have been stable. No change in his regimen was made. 06/23/2024 Dysuria (ICD-10 - R30.0) 09/15/2023 BPH (benign prostatic hyperplasia) (ICD-10 - N40.0) He says he gets up once a night to urinate at the age of 46. We discussed lifestyle modification to reduce nocturia. 03/02/2024 Viral syndrome (ICD-10 - B34.9) We discussed the treatment of his illness, which was diet and rest and acetaminophen. We reviewed the appropriateness of antitussives and decongestants. He is going to report back in 48 hours about the cough. 03/05/2024 Morbid obesity (ICD-10 - E66.01) We discussed his diet and nutrition. He will continue his weight loss program. He has gained 6 pounds over the recent holidays. His Ozempic was continued. He will be seen every 4 weeks and weight loss will be reinforced. I have offered to refer him to the weight loss program at [facility] to discuss bariatric surgery but he emphatically declined that offer. Discussed Weight Watchers and other programs. 05/26/2024 Essential hypertension (ICD-10 - I10) His blood pressure has been elevated recently. He has gained weight. He is not pursuing aa low-sodium diet. When he returns next week to flush his earrs. His blood pressure will be obtained and he will be treated if necessary. 06/10/2024 GERD (gastroesophageal reflux disease) (ICD-10 - K21.9) His reflux symptoms are occasional now. He has omeprazole and liquid antacid to use. 09/15/2023 Peripheral edema (ICD-10 - R60.9) He has mild to moderate peripheral edema below his knees and may be developing lymphedema. There are early changes of venous stasis. He will wear support hose and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
--- OUTSIDE RECORDS SUMMARY | 2024-06-23 13:29 | XMS_ITS ---
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 Name Role Phone Reymundo Gandhi Primary Care Provider Allergies Allergen (clinical drug ingredient) Drug/Non Drug Allergy documented on EMR Reaction Allergy Type Onset Date Status No Known Drug Allergy Unknown Drug Allergy Active REASON FOR VISIT Diabetes, Benign prostatic hypertrophy, Morbid obesity, Sleep apnea, Hyperlipidemia Medications Medication SIG (Take, Route, Frequency, Duration) Notes Start Date End Date Status Clobetasol Propionate 0.05 % 1 application Externally Once a day 09/15/2023 Active Lantus SoloStar 100 UNIT/ML 10 uNITS Subcutaneous daily 09/15/2023 Active Mounjaro 2.5 MG/0.5ML use 2.5mg once a w [place] Subcutaneous once a week DX: Diabetes E11.9 05/18/2024 Active Dexcom G7 Sensor - as directed - use to monitor blood sugars daily 09/15/2023 Active Dexcom G7 Preconstruction Manager - as directed - use t o monitor blood sugars daily 09/15/2023 Active metFORMIN HCl 1000 MG 1 tablet with a me al Orally twicer a day 08/01/2023 Active Furosemide 40 MG TAKE 1 TABLET BY MOUTH EVERY DAY Active Ipratropium-Albuterol 0.5-2.5 (3) MG/3ML Inhalation Active Alcohol Prep Pad 70 % as directed - to check blood sugars daily 12/20/2022 Active Albuterol Sulfate HFA 108 (90 Base) MCG/ACT 1 puff as needed Inhalation every 4 hrs 09/09/2022 Active Trelegy Ellipta 200-62.5-25 MCG/ACT Inhalation Active Pantoprazole Sodium 40 MG TAKE 1 TABLET BY MOUTH EVERY DAY Active Rybelsus 14 MG Oral Activ e Ondansetron HCl 4 MG 1 tablet Orally neptali ry 6 hours 05/16/2023 Active Social History Tobacco Use: Social History [...] User Heavy cigarett e smoker (20-39 cigs/day) Vital Signs Height 68 in 06/10/2024 Weight 303 lbs 06/10/2024 BMI 46.07 kg/m2 06/10/2024 Encounters Encounter Location Date Provider Diagnosis Reymundo Gandhi III, MD [address] [place] [address] [place] [address] 06/10/2024 Reymundo Gandhi Cervical radiculopat hy M54.12 ; DM (diabetes mellitus) E11.9 ; Colon cancer screening Z12.11 ; Sleep apnea in adult G47.33 ; Hyperlipidemia E78.5 ; GERD (gastroesophageal reflux disease) K21.9 ; Former smoker Z87.891 ; Primary osteoarthritis of right knee M17.11 and Essential hypertension I10 Assessments Encounter Date Diagnosis (ICD Code) Assessment Notes Treat ment Notes Treatment Clinical Notes 06/10/2024 Cervical radiculopathy (ICD-10 - M54.12) His neck pain is still present with motions of the neck, but it is substantially diminished. Current therapy was continued without change. 06/10/2024 DM (diabetes mellitus) (ICD-10 - E11.9) [...] microalbumin, hemoglobin A1c and fasting glucose. 06/10/2024 Colon cancer screening (ICD-10 - Z12.11) He is due for colonoscopy. We have discussed today and will schedule it. 06/10/2024 Sleep apnea in adult (ICD-10 - G47.33) He declines to use his sleep apnea saying it does not work. I have encouraged him to try again. 06/10/2024 Hyperlipidemia (ICD-10 - E78.5) His lipids have been stable. No change in his regimen was made. 06/10/2024 GERD (gastroesophageal reflux disease) (ICD-10 - K21.9) His reflux symptoms are occasional now. He has omeprazole and liquid antacid to use. 06/10/2024 Former smoker (ICD-1 0 - Z87.891) He says he has stopped smoking. We discussed a plan to prevent relapse in times of stress and illness. 06/10/2024 Primary osteoarthritis of right knee (ICD-10 - M17.11) He has had a knee replacement at [facility], but continues to have pain. He is now working on a second opinion with the lingual and orthopedic surgeons. I encouraged compliance with the recommendations. 06/10/2024 Essential hypertension (ICD-10 - I10) His blood pressure has been elevated recently. He has gained weight. He is not pursuing aa low-sodium diet. When he returns next week to flush his earrs. His blood pressure will be obtained and he will be treated if necessary. Plan Of Treatment Medication Medication Name Sig Start Date Stop Date Notes Clobetasol Propionate 0.05 % 1 application Externally Once a day 09/15/2023 Lantus SoloStar 100 UNIT/ML 10 uNITS Subcutaneous daily 09/15/2023 Mounjaro 2.5 MG/0.5ML use 2.5mg once a w [place] Subcutaneous once a week 05/18/2024 DX: Diabetes E11.9 Dexcom G7 Sensor - as directed - use to monitor blood sugars daily 09/15/2023 Dexcom G7 Preconstruction Manager - as directed - use t o monitor blood sugars daily 09/15/2023 metFORMIN HCl 1000 MG 1 tablet with a me al Orally twicer a day 08/01/2023 Furosemide 40 MG TAKE 1 TABLET BY [place] TH EVERY DAY Ipratropium-Albuterol 0.5-2.5 (3) MG/3ML Inhalation Alcohol Prep Pad 70 % as directed - to c heck blood sugars daily 12/20/2022 Albuterol Sulfate HFA 108 (90 Base) MCG/ACT 1 puff as needed Inhalation every 4 hrs 09/09/2022 Trelegy Ellipta 200-62.5-25 MCG/ACT Inhalation Pantoprazole Sodium 40 MG TAKE 1 TABLET BY MOUTH EVERY DAY Rybelsus 14 MG Oral Ondansetron HCl 4 MG 1 tablet Orally neptali ry 6 hours 05/16/2023 Pending Test Test Name Order Date COLOGUA06/10/2024 Next Appt Details Follow Up: 2 Weeks, Reason: Telehealth Provider Name:Reymundo Gandhi, 07/07/2024 09:00:00 AM, [address] [place] [address] [address], [place], [address], Provider Name:Reymundo Gandhi, 03/10/2025 09:00:00 AM, [address] [place] [address] [address], [place], [address], Progress Notes * Kate SCHUMACHERDOB:[birth year] (48 yo M)Acc No.[id number]:06/10/2024 Patient:?Kate SCHUMACHER Provider:?Reymundo Gandhi MD :1975???Age:48 Y???Sex:Male Spencer e:06/10/2024 Address:[address] [place] [id number] Subjective: * Chief Complaints: * ???DiabetesBenign prostatic hypertrophyMorbid obesitySleep apneaHyperlipidemia * HPI: ???:? This telehealth visit took place over 15 minutes with the patient at home and me in my office.? He gave consent for billing.? He had another telehealth visit recently and was supposed to have comprehensive blood work done to discuss today.? He has been too busy at work to be able to have it done.? He says he will make a major effort to have it done within the next 2 weeks.? 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 Is currently working every day but Friday when the laboratory, he believes, is not open.? He continues to have nocturia twice a night.? He is breathing comfortably.? His peripheral edema is very minor at this time.? He has difficulty finding a comfortable position with his CPAP machine.? We have referred him back to the [employer] provides a to find more comfortable mask but he declined saying he could not take time from work. ?Telehealth?Location of provider rendering services:?{...} [address] [facility] [address] ?Location of patient:?address listed in demographics for today's visit ?Patient identification confirmed using:?Name, ?Telehealth method:?Telephone only. Patient not visible to care provider. ?Consent:?Patient verbally consented to treatment, Patient verbally consented to billing insurance company, Patient informed of any privacy concerns related to method of visit ?Total time spent with patient (mins)?15 * ROS:?General/Constitutional:?pain?Neck, wrists, right knee.?Chills?denies.?Fatigue?admits.?Fever?denies.?ENT:?Decreased hearing?denies.?Respiratory:?Cough?denies.?Cardiovascular:?Chest pain with exertion?denies.?Dyspnea on exertion?denies.?Shortness of breath?denies.?Gastrointestinal:?Constipation?occasional.?Decreased appetite?denies.?Diarrhea?denies.?Heartburn?controlled with medications.?Nausea?denies.?Rectal bleeding?denies.?Vomiting?denies.?Hematology:?bruising?denies.?petechiae?denies.?Swollen glands?none have been noted.?Genitourinary:?Frequent urination?once a night.?Musculoskeletal:?Muscle aches?denies.?Painful joints?Neck knees and wrists.?Sciatica?denies.?Weakness?denies.?Skin:?Itching?denies.?Rash?denies.?Skin lesion(s)?denies.?Neurologic:?Difficulty speaking?denies.?Dizziness?denies.?Headache?denies.?Low back pain?denies.?Psychiatric:?Depressed mood?which is moderate.? * Medical History:? * Surgical History:?Cyst remov al, Back * Hospitalization/Major Diagno stic Procedure:?shortness of breath 11/2018 * Family History:?Father: dece ased, head and [...] ???He is to Suzy and lives in [place], [place]. He was born in [place], [place]. * Medications:?TakingPantopraz ole Sodium 40 MG Tablet Delayed Release TAKE 1 TABLET BY MOUTH EVERY DAY Ondansetron HCl 4 MG Tablet 1 tablet Orally every 6 hours Rybelsus 14 MG Tablet Oral Trelegy Ellipta 200-62.5-25 MCG/ACT Aerosol Powder Breath Activated Inhalation Ipratropium-Albuterol 0.5-2.5 (3) MG/3ML Solution Inhalation Albuterol Sulfate HFA 108 (90 Base) MCG/ACT Aerosol Solution 1 puff as needed Inhalation every 4 hrs Alcohol Prep Pad 70 % Pad as directed - to check blood sugars daily Furosemide 40 MG Tablet TAKE 1 TABLET BY MOUTH EVERY DAY metFORMIN HCl 1000 MG Tablet 1 tablet with a meal Orally twicer a day Dexcom G7 Preconstruction Manager - Device as directed - use to monitor blood sugars daily Dexcom G7 Sensor - Miscellaneous as directed - use to monitor blood sugars daily Lantus SoloStar 100 UNIT/ML Solution Pen-injector 10 uNITS Subcutaneous daily Clobetasol Propionate 0.05 % Cream 1 application Externally Once a day Mounjaro 2.5 MG/0.5ML Solution Auto-injector use 2.5mg once a week Subcutaneous once a week , Notes to Pharmacist: DX: Diabetes E11.9, Notes: DX: Diabetes E11.9Medication List reviewed and reconciled with the patientTaking Pantoprazole Sodium 40 MG Tablet Delayed Release TAKE 1 TABLET BY MOUTH EVERY DAY Taking Ondansetron HCl 4 MG Tablet 1 tablet Orally every 6 hours Taking Rybelsus 14 MG Tablet Oral Taking Trelegy Ellipta 200-62.5-25 MCG/ACT Aerosol Powder Breath Activated Inhalation Taking Ipratropium-Albuterol 0.5-2.5 (3) MG/3ML Solution Inhalation Taking Albuterol Sulfate HFA 108 (90 Base) MCG/ACT Aerosol Solution 1 puff as needed Inhalation every 4 hrs Taking Alcohol Prep Pad 70 % Pad as directed - to check blood sugars daily Taking Furosemide 40 MG Tablet TAKE 1 TABLET BY MOUTH EVERY DAY Taking metFORMIN HCl 1000 MG Tablet 1 tablet with a meal Orally twicer a day Taking Dexcom G7 Preconstruction Manager - Device as directed - use to monitor blood sugars daily Taking Dexcom G7 Sensor - Miscellaneous as directed - use to monitor blood sugars daily Taking Lantus SoloStar 100 UNIT/ML Solution Pen-injector 10 uNITS Subcutaneous daily Taking Clobetasol Propionate 0.05 % Cream 1 application Externally Once a day Taking Mounjaro 2.5 MG/0.5ML Solution Auto-injector use 2.5mg once a week Subcutaneous once a week , Notes to Pharmacist: DX: Diabetes E11.9, Notes: DX: Diabetes E11.9Medication List reviewed and reconciled with the patient * Allergies:?No Known Drug All ergyno[Allergies Verified] Objective: * Vitals:?Ht: 68, Wt: 303, BMI :46.07, Ht-cm: 172.72, Wt-k.44. Assessment: * Assessment: 1.?DM (diabetes mellitus) - E11.9 (Primary)???Notes :He was continued on the Ozempic at 2 [...] include a microalbumin, hemoglobin A1c and fasting glucose.???2.?Cervical radiculopathy - M54.12???Notes :His neck pain is still present with motions of the neck, but it is substantially diminished. Current therapy was continued without change.???3.?Colon cancer screening - Z12.11???Notes :He is due for colonoscopy.? We have discussed today and will schedule it.???4.?Sleep apnea in adult - G47.33???Notes :He declines to use his sleep apnea saying it does not work. I have encouraged him to try again.???5.?Hyperlipidemia - E78.5???Notes :His lipids have been stable. No change in his regimen was made.???6.?GERD (gastroesophageal reflux disease) - K21.9???Notes :His reflux symptoms are occasional now. He has omeprazole and liquid antacid to use.???7.?Former smoker - Z87.891???Notes :He says he has stopped smoking. We discussed a plan to prevent relapse in times of stress and illness.???8.?Primary osteoarthritis of right knee - M17.11???Notes :He has had a knee replacement at [facility], but continues to have pain. He is now working on a second opinion with the lingual and orthopedic surgeons. I encouraged compliance with the recommendations.???9.?Essential hypertension - I10???Notes :His blood pressure has been elevated recently. He has gained weight. He is not pursuing aa low-sodium diet. When he returns next week to flush his earrs. His blood pressure will be obtained and he will be treated if necessary.??? Plan: * Treatment: 2.?Cervical radiculopathy? Continue Rybelsus Tablet, 14 MG, Oral;?Continue Trelegy Ellipta Aerosol Powder Breath Activated, 200-62.5-25 MCG/ACT, Inhalation;?Continue Ipratropium-Albuterol Solution, 0.5-2.5 (3) MG/3ML, Inhalation;?Continue Albuterol Sulfate HFA Aerosol Solution, 108 (90 Base) MCG/ACT, 1 puff as needed, Inhalation, every 4 hrs;?Continue Alcohol Prep Pad Pad, 70 %, as directed, -, to check blood sugars daily;?Continue Furosemide Tablet, 40 MG, TAKE 1 TABLET BY MOUTH EVERY DAY;?Continue metFORMIN HCl Tablet, 1000 MG, 1 tablet with a meal, Orally, twicer a day;?Continue Lantus SoloStar Solution Pen-injector, 100 UNIT/ML, 10 uNITS, Subcutaneous, daily;?Continue Clobetasol Propionate Cream, 0.05 %, 1 application, Externally, Once a day;?Continue Mounjaro Solution Auto-injector, 2.5 MG/0.5ML, use 2.5mg once a week, Subcutaneous, once a week, Notes to Pharmacist: DX: Diabetes E11.9, Notes: DX: Diabetes E11.9.?? 3.?Others? Continue Pantoprazole Sodium Tablet Delayed Release, 40 MG, TAKE 1 TABLET BY MOUTH EVERY DAY;?Continue Ondansetron HCl Tablet, 4 MG, 1 tablet, Orally, every 6 hours.?? * Labs:? * ?Lab: COLOGUARD * Procedure Codes:?56094 SYNCH AUDIO-ONLY EST SF 10 * Preventive Medicine:? ??Counseling:?Care goal follow-up plan:?Counseling [...] done: Medical or Other reason not done ??DM Care Plan:?Patient Lifestyle Goals?Patient wants to be able to manage diabetes without too much effort.?Treatment Goals?Blood Sugars less than < 115, HbA1C < 7.0.?Barriers?no barriers.?Self-Managment Goals?Work on weight loss, with a goal of losing 1 lb per week.? * Follow Up:?2 Weeks (Reason: Telehealth) * Images: * Sign off status: Completed true * Provider:?Reymundo Gandhi MD Date:?02/2024 Generated for Kareem acosta/Brielle/eTransmitting on:?06/23/2024 01:29 PM EDT History and Physical Notes * HPI (History of Present Illness) Category Sub-Category Detail Notes Telehealth Location of [facility] rendering services:: {...} [address] [place] [id number] Location of patient:: address listed in demographics for today's visit Patient identification confirmed using:: Name, Telehealth method:: Telephone only. Lola ent not visible to care provider. Consent:: Patient verbally c onsented to treatment, Patient verbally consented to billing insurance company, Patient informed of any privacy concerns related to method of visit Total time spent with patient (mins): 15
--- OUTSIDE RECORDS SUMMARY | 2024-06-23 13:29 | XMS_ITS ---
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 Name Role Phone Reymundo Gandhi Primary Care Provider [phone] Allergies Allergen (clinical drug ingredient) Drug/Non Drug Allergy documented on EMR Reaction Allergy Type Onset Date Status No Known Drug Allergy Unknown Drug Allergy Active REASON FOR VISIT Morbid obesity, Sleep apnea, Cervical radiculopathy, Diabetes, Benign prostatic hypertrophy, Hypertension Medications Medication SIG (Take, Route, Frequency, Duration) Notes Start Date End Date Status Mounjaro 2.5 MG/0.5ML use 2.5mg once a w [place] Subcutaneous once a week DX: Diabetes E11.9 05/18/2024 Active Clobetasol Propionate 0.05 % 1 application Externally Once a day 09/15/2023 Active Lantus SoloStar 100 UNIT/ML 10 uNITS Subcutaneous daily 09/15/2023 Active Dexcom G7 Sensor - as directed - use to monitor blood sugars daily 09/15/2023 Active Dexcom G7 Underground Distribution Engineer - as directed - use t o monitor blood sugars daily 09/15/2023 Active Albuterol Sulfate HFA 108 (90 Base) MCG/ACT 1 puff as needed Inhalation every 4 hrs 09/09/2022 Active Ipratropium-Albuterol 0.5-2.5 (3) MG/3ML Inhalation Active metFORMIN HCl 1000 MG 1 tablet with a me al Orally twicer a day 08/01/2023 Active Furosemide 40 MG TAKE 1 TABLET BY MOUTH EVERY DAY Active Alcohol Prep Pad 70 % as directed - to check blood sugars daily 12/20/2022 Active Trelegy Ellipta 200-62.5-25 MCG/ACT Inhalation Active Rybelsus 14 MG Oral Activ e Ondansetron HCl 4 MG 1 tablet Orally neptali ry 6 hours 05/16/2023 Active Pantoprazole Sodium 40 MG TAKE 1 TABLET BY MOUTH EVERY DAY Active Social History Tobacco Use: Social History [...] (20-39 cigs/day) Vital Signs Height 68 in 05/26/2024 Weight 303 lbs 05/26/2024 BMI 46.07 kg/m2 05/26/2024 Encounters Encounter Location Date Provider Diagnosis Reymundo Gandhi III, MD [address] [place] [address] [place] [address] 05/26/2024 Reymundo Gandhi Cervical radiculopat hy M54.12 ; Morbid obesity E66.01 ; DM (diabetes mellitus) E11.9 ; Former smoker Z87.891 ; BPH (benign prostatic hyperplasia) N40.0 ; Essential hypertension I10 ; Primary osteoarthritis of right knee M17.11 ; Sleep apnea in adult G47.33 and Hyperlipidemia E78.5 Assessments Encounter Date Diagnosis (ICD Code) Assessment Notes Treat ment Notes Treatment Clinical Notes 05/26/2024 Cervical radiculopathy (ICD-10 - M54.12) His [...] was discontinued. We are working on obtaining Mounjaro. He will be seen every 4 weeks and weight loss will be reinforced. I have offered to refer him to the weight loss program at [facility] to discuss bariatric surgery but he emphatically declined that offer. Discussed Weight Watchers and other programs. He will be brought back to the office to be weighed. 05/26/2024 DM (diabetes mellitus) (ICD-10 - E11.9) He was continued on the Ozempic at 2 mg. He will return once a month. I have asked him to do to fasting glucose levels per month and record them in a notebook. We have discussed limiting his portions. His answer to that was he loves to eat. 05/26/2024 Former smoker (ICD-1 0 - Z87.891) He says he has stopped smoking. We discussed a plan to prevent relapse in times of stress and illness. 05/26/2024 BPH (benign prostati c hyperplasia) (ICD-10 - N40.0) He says he gets up once a night to urinate at the age of 46. We discussed lifestyle modification to reduce nocturia. 05/26/2024 Essential hypertension (ICD-10 - I10) His blood pressure has been elevated recently. He has gained weight. He is not pursuing aa low-sodium diet. When he returns next week to flush his earrs. His blood pressure will be obtained and he will be treated if necessary. 05/26/2024 Primary osteoarthritis of right knee (ICD-10 - M17.11) He has had a knee replacement at [facility], but continues to have pain. He is now working on a second opinion with the lingual and orthopedic surgeons. I encouraged compliance with the recommendations. 05/26/2024 Sleep apnea in adult (ICD-10 - G47.33) He declines to use his sleep apnea saying it does not work. I have encouraged him to try again. 05/26/2024 Hyperlipidemia (ICD-10 - E78.5) His lipids have been stable. No change in his regimen was made. Plan Of Treatment Medication Medication Name Sig Start Date Stop Date Notes Mounjaro 2.5 MG/0.5ML use 2.5mg once a w [place] Subcutaneous once a week 05/18/2024 DX: Diabetes E11.9 Clobetasol Propionate 0.05 % 1 application Externally Once a day 09/15/2023 Lantus SoloStar 100 UNIT/ML 10 uNITS Subcutaneous daily 09/15/2023 Dexcom G7 Sensor - as directed - use to monitor blood sugars daily 09/15/2023 Dexcom G7 Underground Distribution Engineer - as directed - use t o monitor blood sugars daily 09/15/2023 Albuterol Sulfate HFA 108 (90 Base) MCG/ACT 1 puff as needed Inhalation every 4 hrs 09/09/2022 Ipratropium-Albuterol 0.5-2.5 (3) MG/3ML Inhalation metFORMIN HCl 1000 MG 1 tablet with a me al Orally twicer a day 08/01/2023 Furosemide 40 MG TAKE 1 TABLET BY [place] TH EVERY DAY Alcohol Prep Pad 70 % as directed - to c heck blood sugars daily 12/20/2022 Trelegy Ellipta 200-62.5-25 MCG/ACT Inhalation Rybelsus 14 MG Oral Ondansetron HCl 4 MG 1 tablet Orally neptali ry 6 hours 05/16/2023 Pantoprazole Sodium 40 MG TAKE 1 TABLET BY MOUTH EVERY DAY Next Appt Details Follow Up: 2 Weeks, Reason: Telehealth Provider Name:Reymundo Gandhi, 07/07/2024 09:00:00 AM, [address] [place] [address] [address], [place], [address], Provider Name:Reymundo Gandhi, 03/10/2025 09:00:00 AM, [address] [place] [address] [address], [place], [address], Progress Notes * Kate SCHUMACHERDOB:[birth year] (48 yo M)Acc No.[id number]:05/26/2024 Patient:?VALENTINOKate DOBSON Provider:?Reymundo Gandhi MD :1975???Age:48 Y???Sex:Male Spencer e:05/26/2024 Address:[address] [place], [place] [id number] Subjective: * Chief Complaints: * ???Morbid obesitySleep apnea Cervical radiculopathyDiabetesBenign prostatic hypertrophyHypertension * HPI: ???:? This telehealth visit took place over 15 minutes with the patient at home and me in my office.? He gave consent for billing.? He was unable to have the blood work done that was ordered.? He has stopped taking the Ozempic because he says it was ineffective in helping him lose weight.? We are in the process of getting prior approval for Mounjaro to see if that agent would be of help.? He says he feels tired all the time.? He rises from sleep once or twice to urinate.? He has had no difficulty breathing.? He continues to have pain in his right knee with standing at work.? He was given an appointment to come to the office to have his blood pressure measured. ?Telehealth?Location of provider rendering services:?{...} [address] [facility] [address] ?Location of patient:?address listed in demographics for today's visit ?Patient identification confirmed using:?Name, ?Telehealth method:?Telephone only. Patient not visible to care provider. ?Consent:?Patient verbally consented to treatment, Patient verbally consented to billing insurance company, Patient informed of any privacy concerns related to method of visit ?Total time spent with patient (mins)?15 * ROS:?General/Constitutional:?pain?only normal aches and pains.?Chills?denies.?Fatigue?admits.?Fever?denies.?ENT:?Decreased hearing?denies.?Respiratory:?Cough?denies.?Cardiovascular:?Chest pain with exertion?denies.?Dyspnea on exertion?denies.?Shortness of breath?denies.?Gastrointestinal:?Constipation?occasional.?Decreased appetite?denies.?Diarrhea?denies.?Heartburn?aggravated by food.?Nausea?denies.?Rectal bleeding?denies.?Vomiting?denies.?Hematology:?bruising?denies.?petechiae?denies.?Swollen glands?none have been noted.?Genitourinary:?Frequent urination?once a night.?Musculoskeletal:?Muscle aches?denies.?Painful joints?denies.?Sciatica?denies.?Weakness?denies.?Skin:?Itching?denies.?Rash?denies.?Skin lesion(s)?denies.?Neurologic:?Difficulty speaking?denies.?Dizziness?denies.?Headache?denies.?Low back pain?denies.?Psychiatric:?Depressed mood?denies.? * Medical History:? * Surgical History:?Cyst remov [...] ???He is to Suzy and lives in [place], [place]. He was born in [place], [place]. * Medications:?TakingPantopraz ole Sodium 40 MG [...] meal Orally twicer a day Dexcom G7 Underground Distribution Engineer - Device as directed - use to monitor blood sugars daily Dexcom G7 Sensor - Miscellaneous as directed - use to monitor blood sugars daily Lantus SoloStar 100 UNIT/ML Solution Pen-injector 10 uNITS Subcutaneous daily Clobetasol Propionate 0.05 % Cream 1 application Externally Once a day Mounjaro 2.5 MG/0.5ML Solution Auto-injector use 2.5mg once a week Subcutaneous once a week , stop date 09/15/2024, Notes to Pharmacist: DX: Diabetes E11.9, Notes: [...] Orally twicer a day Taking Dexcom G7 Underground Distribution Engineer - Device as directed - use to [...] a week Subcutaneous once a week , stop date 09/15/2024, Notes to Pharmacist: DX: Diabetes E11.9, Notes: DX: Diabetes E11.9Medication List reviewed and reconciled with the patient * Allergies:?No Known Drug All ergyno[Allergies Verified] Objective: * Vitals:?Ht: 68, Wt: 303, BMI :46.07, Ht-cm: 172.72, Wt-k.44. Assessment: * Assessment: 1.?Morbid obesity - E66.01 ( Primary)???Notes :His body mass index is 46.We discussed his diet and nutrition. He will continue his weight loss program. He has gained weight. His Ozempic was discontinued. We are working on obtaining Mounjaro. He will be seen every 4 weeks and weight loss will be reinforced. I have offered to refer him to the weight loss program at [facility] to discuss bariatric surgery but he emphatically declined that offer. Discussed Weight Watchers and other programs. He will be brought back to the office to be weighed.???2.?Cervical radiculopathy - M54.12???Notes :His neck pain is still present with motions of the neck, but it is substantially diminished. Current therapy was continued without change.???3.?DM (diabetes mellitus) - E11.9???Notes :He was continued on the Ozempic at 2 mg. He will return once a month. I have asked him to do to fasting glucose levels per month and record them in a notebook. We have discussed limiting his portions. His answer to that was he loves to eat.???4.?Former smoker - Z87.891???Notes :He says he has stopped smoking. We discussed a plan to prevent relapse in times of stress and illness.???5.?BPH (benign prostatic hyperplasia) - N40.0???Notes :He says he gets up once a night to urinate at the age of 46. We discussed lifestyle modification to reduce nocturia.???6.?Essential hypertension - I10???Notes :His blood pressure has been elevated recently. He has gained weight. He is not pursuing aa low-sodium diet. When he returns next week to flush his earrs. His blood pressure will be obtained and he will be treated if necessary.???7.?Primary osteoarthritis of right knee - M17.11???Notes :He has had a knee replacement at [facility], but continues to have pain. He is now working on a second opinion with the lingual and orthopedic surgeons. I encouraged compliance with the recommendations.???8.?Sleep apnea in adult - G47.33???Notes :He declines to use his sleep apnea saying it does not work. I have encouraged him to try again.???9.?Hyperlipidemia - E78.5???Notes :His lipids have been stable. No change in his regimen was made.??? This was a telehealth visit Plan: * Treatment: 2.?DM (diabetes mellitus)? Continue Dexcom G7 Underground Distribution Engineer Device, -, as directed, -, use to monitor blood sugars daily;?Continue Dexcom G7 Sensor Miscellaneous, -, as directed, -, use to monitor blood sugars daily.?? 3.?Others? Continue Pantoprazole Sodium Tablet Delayed Release, 40 MG, TAKE 1 TABLET BY MOUTH EVERY DAY;?Continue Ondansetron HCl Tablet, 4 MG, 1 tablet, Orally, every 6 hours.?? * Procedure Codes:? * Preventive Medicine:? ??Counseling:?Care goal follow-up plan:?Counseling for abnormal BMI given?Yes ?Smoking/Tobacco Use?Patient counseled on the dangers of tobacco use and urged to quit.?05/26/2024 ??DM Care Plan:?Patient Lifestyle Goals?Patient wants to be able to manage diabetes without too much effort.?Treatment Goals?HbA1C < 7.0, Blood Sugars less than < 115.?Barriers?no barriers.?Self-Managment Goals?Work on weight loss, with a goal of losing 1 lb per week.? * Follow Up:?2 Weeks (Reason: Telehealth) * Images: * Sign off status: Completed true * Provider:?Reymundo Gandhi MD Date:?05/11 Generated for Kareem acosta/Brielle/Nilam on:?06/23/2024 01:29 PM EDT History and Physical Notes * HPI (History of Present Illness) Category Sub-Category Detail Notes Telehealth Location of [facility] rendering services:: {...} [address] [place] [id number] Location of patient:: address listed in demographics [...]
== END 2024-06-23 13:17 | disposition home or self-care (01) ==
LOC: HO.LNP 13:16
PROVIDERS: Visit Provider Internal Medicine Medical Oncology
DX: R35.0 Frequency of micturition (principal); R30.0 Dysuria
CPT/HCPCS: 81001; 87086